=== PATIENT | male | born 1970 | race Caucasian/White ===

== ENCOUNTER 2016-12-29 08:04 | Emergency (ER) | payer OTHER, BC ==
[~2016-12-29] VITALS: Ht 188 cm; Wt 111.1 kg
[2016-12-29 08:04] VITALS: BP 145/86
[2016-12-29] MEDS ORDERED: VALIUM5 MG PO (08:59)
[2016-12-29] MEDS ORDERED: OXYCONTIN10 M1 PO (08:59)
== END 2016-12-29 09:20 | disposition home or self-care (01) ==
LOC: ER 08:04
DX: S39.012A Strain of muscle, fascia and tendon of lower back, initial encounter (principal); Z88.6 Allergy status to analgesic agent; F17.210 Nicotine dependence, cigarettes, uncomplicated; X50.0XXA Overexertion from strenuous movement or load, initial encounter; Y93.89 Activity, other specified; Y92.89 Other specified places as the place of occurrence of the external cause; Y99.0 Civilian activity done for income or pay